=== PATIENT | male | born 1940 | race Caucasian/White ===

== ENCOUNTER 2024-12-04 14:18 | Observation (INO) ==
[2024-12-04] MEDS ORDERED: IOPAMIDOL 100 ML BOTTLE IV ONE (14:19)
[2024-12-04] MEDS: 0.9 % SODIUM CHLORIDE 1,000 ML IV ONE (14:51)
[2024-12-04 14:57] LABS: Basophils # (Auto) 0.03 K/mcL (0.00-0.30); Basophils % (Auto) 0.2 % (0.0-2.0); Eosinophils # (Auto) 0 K/mcL (0.00-0.70); Eosinophils % (Auto) 0 % (0.0-7.0); Hematocrit 53.3 % (40.1-51.0); Hemoglobin 17.9 g/dL (13.7-17.5); Lymphocytes # (Auto) 1.77 K/mcL (1.50-4.80); Lymphocytes % (Auto) 13.8 % (15.5-49.0); Mean Corpuscular HGB Conc 33.6 g/dL (31.0-36.0); Monocytes # (Auto) 0.98 K/mcL (0.10-0.90); Monocytes % (Auto) 7.7 % (1.0-12.0); Neutrophils % (Auto) 78.2 % (38.0-78.0); Platelet Count 161 K/mcL (140-440); RBC 5.57 M/mcL (4.63-6.08); WBC 12.8 K/mcL (4.5-11.0)
[2024-12-04 15:14] LABS: ALT/SGPT 20 U/L (<40); AST/SGOT 27 U/L (<40); Albumin 4.7 gm/dL (3.2-5.2); Albumin/Globulin Ratio 1.5 (1.0-2.3); Alkaline Phosphatase 91 U/L (39-117); Anion Gap 14.0 (8.0-16.0); Bilirubin,Total 1.2 mg/dL (0.1-1.0); Blood Urea Nitrogen 22 mg/dL (8-23); Calcium 9.6 mg/dL (8.6-10.4); Carbon Dioxide 21 mmol/L (22-30); Chloride 106 mmol/L (96-108); Globulin 3.2 gm/dL (2.2-3.7); Glucose 112 mg/dL (70-105); Potassium 4.0 mmol/L (3.3-5.1); Sodium 141 mmol/L (133-145)
[2024-12-04 16:29] LABS: Bacteria,Urine 0 /hpf (0); Bilirubin,Urine NEGATIVE (Negative); Color,Urine LT. YELLOW; Glucose,Urine (UA) NEGATIVE (Negative); Ketones,Urine NEGATIVE (Negative); Leukocyte Esterase,Urine NEGATIVE /uL (Negative); PH,Urine 6.0 (5.0-9.0); Protein,Urine NEGATIVE (Negative); Specific Gravity,Urine <= 1.005 (1.000-1.035); Urobilinogen,Urine 0.2 mg/dL
[2024-12-04] MEDS: 0.9 % SODIUM CHLORIDE 1,000 ML IV SCH (16:29)
[2024-12-04] MEDS: IPRATROPIUM ALBUTEROL INH SCH (20:30)
[2024-12-04] MEDS: PYRIDOSTIGMINE BROMIDE 10 MG/2 ML AMPUL IV SCH (20:39)
[2024-12-04] MEDS: METOCLOPRAMIDE 10 MG/2 ML VIAL IV SCH (23:33)
[2024-12-05 05:34] LABS: Basophils # (Auto) 0.02 K/mcL (0.00-0.30); Basophils % (Auto) 0.2 % (0.0-2.0); Eosinophils # (Auto) 0 K/mcL (0.00-0.70); Eosinophils % (Auto) 0 % (0.0-7.0); Hematocrit 45.1 % (40.1-51.0); Hemoglobin 14.9 g/dL (13.7-17.5); Lymphocytes # (Auto) 2.49 K/mcL (1.50-4.80); Lymphocytes % (Auto) 29.7 % (15.5-49.0); Mean Corpuscular HGB Conc 33.0 g/dL (31.0-36.0); Monocytes # (Auto) 0.78 K/mcL (0.10-0.90); Monocytes % (Auto) 9.3 % (1.0-12.0); Neutrophils % (Auto) 60.8 % (38.0-78.0); Platelet Count 131 K/mcL (140-440); RBC 4.53 M/mcL (4.63-6.08); WBC 8.4 K/mcL (4.5-11.0)
[2024-12-05 05:55] LABS: ALT/SGPT 14 U/L (<40); AST/SGOT 24 U/L (<40); Albumin 3.6 gm/dL (3.2-5.2); Albumin/Globulin Ratio 1.6 (1.0-2.3); Alkaline Phosphatase 67 U/L (39-117); Anion Gap 9.0 (8.0-16.0); Bilirubin,Direct 0.6 mg/dL (<0.3); Bilirubin,Total 1.4 mg/dL (0.1-1.0); Blood Urea Nitrogen 15 mg/dL (8-23); Calcium 8.1 mg/dL (8.6-10.4); Carbon Dioxide 22 mmol/L (22-30); Chloride 110 mmol/L (96-108); Globulin 2.3 gm/dL (2.2-3.7); Glucose 100 mg/dL (70-105); Phosphorous 2.9 mg/dL (2.5-4.5); Potassium 3.8 mmol/L (3.3-5.1); Sodium 141 mmol/L (133-145); Triglycerides 67 mg/dL (<150); Uric Acid 6.9 mg/dL (2.5-8.0)
[2024-12-05] MEDS: POLYETHYLENE GLYCOL 3350 17 GM PACKET PO SCH (16:26)
[2024-12-06 07:19] VITALS: O2SAT 94
[2024-12-06 11:18] VITALS: TEMP 98.2
== END 2024-12-06 14:45 | disposition home or self-care (01) ==
LOC: ED 14:18 → MEDSUR 14:18
PROVIDERS: ADMIT Family Medicine Adult Medicine; ATTEND Family Medicine Adult Medicine